=== PATIENT | female | born 1955 | race Caucasian/White ===

== ENCOUNTER → 2023-06-11 | Outpatient (CLI) | payer MEDICARE ==
[~2023-06-11] MED LIST: LIPITOR10 MG PO; LISINOPRIL/HCTZ1 TA2 PO; PERCOCET 325 MG1 TA3 PO; PRILOSEC40 MG PO
== END ==
LOC: RAD 06-01 13:30 → CT 06-01 14:00 → RAD 13:30
PROVIDERS: ATTEND Family Medicine
DX: Z12.2 Encounter for screening for malignant neoplasm of respiratory organs (principal); J43.2 Centrilobular emphysema; M81.0 Age-related osteoporosis without current pathological fracture; R91.8 Other nonspecific abnormal finding of lung field; E04.1 Nontoxic single thyroid nodule; F17.210 Nicotine dependence, cigarettes, uncomplicated